=== PATIENT | female | born 1995 | race African-American/Black ===

== ENCOUNTER 2018-04-23 03:55 | Emergency (ER) | payer MEDICAID, OTHER ==
[~2018-04-23] VITALS: Ht 175.3 cm; Wt 87.2 kg
[~2018-04-23 03:55] MED LIST: ALBUTEROL INH; QVAR INH
[2018-04-23] MEDS ORDERED: PREDNISONE 20MG TABLET PO STA (04:50)
[2018-04-23] MEDS ORDERED: IPRATROPIUM BROMIDE (0.02%) 0.5MG/2.5ML NEB HHN STA (04:50)
[2018-04-23] MEDS ORDERED: ALBUTEROL (0.083%) 2.5MG/3ML NEB HHN STA (04:50)
[2018-04-23 09:25] VITALS: BP 118/62
== END 2018-04-23 09:30 | disposition home or self-care (01) ==
LOC: ER 03:55
DX: J45.901 Unspecified asthma with (acute) exacerbation (principal); R03.0 Elevated blood-pressure reading, without diagnosis of hypertension; F12.90 Cannabis use, unspecified, uncomplicated
CPT/HCPCS: 81025; 94640; 99283; J7512; J7611

== ENCOUNTER 2018-08-12 01:24 | Emergency (ER) | payer MEDICAID, OTHER ==
[~2018-08-12] VITALS: Ht 172.7 cm; Wt 91.9 kg
[2018-08-12] MEDS ORDERED: ALBUTEROL (0.083%) 2.5MG/3ML NEB HHN STA (03:54)
[2018-08-12] MEDS ORDERED: PREDNISONE 20MG TABLET PO STA (03:54)
[2018-08-12] MEDS ORDERED: IPRATROPIUM BROMIDE (0.02%) 0.5MG/2.5ML NEB HHN STA (03:54)
[2018-08-12 04:53] VITALS: BP 93/40
== END 2018-08-12 04:54 | disposition home or self-care (01) ==
LOC: ER 01:25
DX: J45.901 Unspecified asthma with (acute) exacerbation (principal); F12.10 Cannabis abuse, uncomplicated
CPT/HCPCS: 94640; 99283; J7512; J7611

== ENCOUNTER 2018-08-31 19:06 | Emergency (ER) | payer MEDICAID ==
[~2018-08-31] VITALS: Ht 172.7 cm; Wt 88.0 kg
[2018-08-31] MEDS ORDERED: ALBUTEROL (0.083%) 2.5MG/3ML NEB HHN STA (19:36)
[2018-08-31] MEDS ORDERED: IPRATROPIUM BROMIDE (0.02%) 0.5MG/2.5ML NEB HHN STA (19:36)
[2018-08-31] MEDS ORDERED: METHYLPREDNISOLONE SOD SUCC 125 MG/2 ML VIAL IV STA (19:36)
[2018-08-31 21:30] VITALS: BP 123/56
== END 2018-08-31 23:00 | disposition left against medical advice (07) ==
LOC: ER 19:06
DX: J45.901 Unspecified asthma with (acute) exacerbation (principal)
CPT/HCPCS: 71045; 81025; 94644; 96374; 99285; J2930; J7611; Z7610

== ENCOUNTER 2019-02-19 11:05 | Emergency (ER) | payer MEDICAID ==
[~2019-02-19] VITALS: Ht 172.7 cm; Wt 84.0 kg
[2019-02-19 12:39] VITALS: BP 118/66
[2019-02-19] MEDS ORDERED: PREDNISONE 20MG TABLET PO STA (13:05)
[2019-02-19] MEDS ORDERED: ALBUTEROL (0.083%) 2.5MG/3ML NEB HHN STA (13:05)
== END 2019-02-19 16:00 | disposition home or self-care (01) ==
LOC: ER 11:08
DX: J45.901 Unspecified asthma with (acute) exacerbation (principal); Z88.1 Allergy status to other antibiotic agents
CPT/HCPCS: 71045; 81025; 94640; 99283; J7512; J7611; Z7610

== ENCOUNTER 2019-05-16 09:54 | Emergency (ER) | payer MEDICAID, OTHER ==
[~2019-05-16] VITALS: Ht 172.7 cm; Wt 86.0 kg
[2019-05-16 10:38] VITALS: BP 94/52
== END 2019-05-16 15:03 | disposition left against medical advice (07) ==
LOC: ER 09:54
DX: Z53.21 Procedure and treatment not carried out due to patient leaving prior to being seen by health care provider (principal); J45.909 Unspecified asthma, uncomplicated